=== PATIENT | male | born 1945 | race Hispanic/Latino ===

== ENCOUNTER 2017-06-26 06:17 | Day surgery (SDC) | payer BC ==
[2017-06-24 07:54] VITALS: BP 109/59
[~2017-06-26] VITALS: Ht 167.6 cm; Wt 73.0 kg
[~2017-06-26 06:17] MED LIST: ASPI-555 PO; DESO15CR29 TP; ENAL5TAB PO; FISH1CAP49 PO; GABA-531 PO; PRAV80TA21 PO
[2017-06-26] MEDS ORDERED: SODIUM CHLORIDE 0.9% 1000ML 1,000 ML IV ONE (06:34)
[2017-06-26 06:35] VITALS: BP 130/86
[2017-06-26] MEDS ORDERED: FENTANYL CITRATE PF 50 MCG/1 ML 2ML VIAL ONE (07:28)
[2017-06-26] MEDS ORDERED: GLYCOPYRROLATE 0.2 MG/ML 5 ML VIAL ONE (07:28)
[2017-06-26] MEDS ORDERED: LIDOCAINE HCL 2% 20ML ONE (07:28)
[2017-06-26] MEDS ORDERED: PROPOFOL 10 MG/ML 20ML VIAL IV ONE (07:28)
== END 2017-06-26 08:50 ==
LOC: ENDO 06:17 → DAH 06:17 → ENDO 08:50
PROVIDERS: ATTEND Internal Medicine Gastroenterology
DX: Z09 Encounter for follow-up examination after completed treatment for conditions other than malignant neoplasm (principal); Z86.010 Personal history of colon polyps; K21.9 Gastro-esophageal reflux disease without esophagitis; I10 Essential (primary) hypertension; E78.5 Hyperlipidemia, unspecified; N40.0 Benign prostatic hyperplasia without lower urinary tract symptoms; E11.42 Type 2 diabetes mellitus with diabetic polyneuropathy; Z68.32 Body mass index [BMI] 32.0-32.9, adult; Z79.899 Other long term (current) drug therapy; Z80.0 Family history of malignant neoplasm of digestive organs; Z85.3 Personal history of malignant neoplasm of breast
CPT/HCPCS: 45378; 82948 ×2; 93005; A4606; J2704; J3010; J3490 ×2; J7030

== ENCOUNTER → 2019-12-11 | Outpatient (CLI) | payer BC ==
[~2019-12-11] MED LIST changes: -ASPI-555 PO; +ASPI-556 PO; -ENAL5TAB PO; +ENAL5TAB17 PO
== END | disposition home or self-care (01) ==
LOC: RAH 07:52
PROVIDERS: ATTEND Internal Medicine
DX: E11.9 Type 2 diabetes mellitus without complications (principal)
CPT/HCPCS: 93922